=== PATIENT | male | born 1970 | race Caucasian/White ===

== ENCOUNTER 2018-09-14 07:53 | Day surgery (SDC) | payer OTHER ==
[~2018-09-14] VITALS: Ht 175.3 cm; Wt 73.0 kg
[2018-09-14 09:18] VITALS: BP 120/75; PULSE 56; TEMP 97.4
[2018-09-14 10:50] VITALS: BP 114/70; PULSE 58; TEMP 97
--- NOTE | 2018-09-14 10:52 | NUR ---
Pt arrive to room from Endo procedure. Pt A/Ox3. Pt walked to chair x1 assist. STeady gait. Pt denies any nausea or pain. Requested sprite,muffin, and ice cream. Report received from KIMBERLY Daniels.
[2018-09-14 11:05] VITALS: BP 99/54; PULSE 64
[2018-09-14 11:20] VITALS: BP 107/71; PULSE 48
--- NOTE | 2018-09-14 11:26 | NUR ---
Pt tolerating food and drink. Request more muffin and jello. VSS.
--- NOTE | 2018-09-14 11:45 | NUR ---
Discussed discharge instructions, med list and procedure information with pt. Dr Pinedo is putting a new prescriptiong for Omeprazole to pt's pharmacy. Pt stated he will sampler pickup new prescription when discharged. Answered all questions to pt's satisfaction. Pt signed discharged paperwork.
--- NOTE | 2018-09-14 11:56 | NUR ---
Pt discharged from [facility]. Pt left unit via wheelchair to private vehicle driven by friend, Alejandra.
== END 2018-09-14 11:56 | disposition home or self-care (01) ==
LOC: SDCO 07:53
DX: K21.0 Gastro-esophageal reflux disease with esophagitis (principal); R68.81 Early satiety; K92.1 Melena; R19.7 Diarrhea, unspecified; K64.0 First degree hemorrhoids; F41.9 Anxiety disorder, unspecified; Q79.8 Other congenital malformations of musculoskeletal system; Z87.891 Personal history of nicotine dependence
CPT/HCPCS: J2250; J3010; J7030

== ENCOUNTER 2019-09-27 07:02 | Day surgery (SDC) | payer OTHER ==
[~2019-09-27] VITALS: Ht 175.3 cm; Wt 81.5 kg
[2019-09-27] MEDS ORDERED: PRIL40 PO (07:28)
[2019-09-27 07:29] VITALS: BP 132/86; PULSE 52; TEMP 97.5
[2019-09-27 08:25] VITALS: BP 132/86; PULSE 60; TEMP 97.6
--- NOTE | 2019-09-27 08:25 | NUR ---
Patient brought back to [address] via cart. Ambulated to chair without difficulty. Placed on monitors, vital signs stable. Patient denies pain or nausea. Report recieved from KIMBERLY Negron all questions answered. States he would like a soda and jello. Warm blanket provided, call mascorro within reach. Will continue to monitor.
[2019-09-27 08:40] VITALS: BP 106/77; PULSE 53
--- NOTE | 2019-09-27 08:40 | NUR ---
Patient states he is feeling well. Friend is in parking lot to drive home. Will continue to monitor.
[2019-09-27 08:55] VITALS: BP 106/73; PULSE 52
--- NOTE | 2019-09-27 08:55 | NUR ---
Sergey states he feel ready to go home at this time. Vital signs stable. Tolerating food and drink without difficulty. IV removed, intact. Patient to get dressed at this time.
--- NOTE | 2019-09-27 09:00 | NUR ---
Discharge instructions reviewed with patient. All questions answered. Patient brought down to lobby via wheel chair. Belongings in hand. Friend met at front door. To be driven home by friend Edgar.
== END 2019-09-27 08:55 | disposition home or self-care (01) ==
LOC: SDCO 07:02
DX: K22.70 Barrett's esophagus without dysplasia (principal); K21.9 Gastro-esophageal reflux disease without esophagitis; F32.9 Major depressive disorder, single episode, unspecified; F41.9 Anxiety disorder, unspecified; Z87.891 Personal history of nicotine dependence; Q79.8 Other congenital malformations of musculoskeletal system
CPT/HCPCS: J2250; J3010; J7030